=== PATIENT | male | born 1990 | race Caucasian/White ===

== ENCOUNTER 2017-06-23 08:33 | Emergency (ER) | payer OTHER ==
[~2017-06-23] VITALS: Ht 182.9 cm; Wt 98.4 kg
[~2017-06-23 08:33] MED LIST: BACTRIM DS TAB1 EACH PO; CEPHALEXIN500 M1 PO; CEPHALEXIN500 MG PO; CLINDAMYCIN HC300 MG PO; IBUPROFEN600 MG PO; KEFLEX500 MG PO; LIDODERM700 MG TOP; MOBIC7.5 MG PO; NAPROXEN500 MG PO; NORCO 10-325 T1 EACH PO; NORCO 5-325 TA1 EACH PO; VALIUM5 MG PO
== END 2017-06-23 10:07 | disposition home or self-care (01) ==
LOC: ED 08:33
PROC: 0HQ1XZZ Repair Face Skin, External Approach (ICD-10-PCS; principal; 2017-06-23)
DX: S01.412A Laceration without foreign body of left cheek and temporomandibular area, initial encounter (principal); F17.200 Nicotine dependence, unspecified, uncomplicated; W27.8XXA Contact with other nonpowered hand tool, initial encounter; Y99.0 Civilian activity done for income or pay
CPT/HCPCS: 12013; 99282

== ENCOUNTER 2019-10-09 09:05 | Emergency (ER) | payer OTHER, BC ==
[~2019-10-09] VITALS: Ht 182.9 cm; Wt 106.6 kg
[2019-10-09] MEDS ORDERED: IBUPROFEN IB200 MG PO (09:19)
== END 2019-10-09 09:48 | disposition home or self-care (01) ==
LOC: ED 09:05
DX: M70.831 Other soft tissue disorders related to use, overuse and pressure, right forearm (principal); I10 Essential (primary) hypertension; F17.200 Nicotine dependence, unspecified, uncomplicated
CPT/HCPCS: 99283

== ENCOUNTER 2020-06-13 10:26 | Emergency (ER) | payer SELFPAY ==
[~2020-06-13] VITALS: Ht 182.9 cm; Wt 96.6 kg
[~2020-06-13 10:26] MED LIST changes: +IBUPROFEN IB200 MG PO
[2020-06-13] MEDS ORDERED: ONDANSETRON ODT8 MG PO (11:58)
--- NOTE | 2020-06-13 12:00 | NUR ---
Covid swab obtained and sent for rapid testing to clinic
--- NOTE | 2020-06-14 13:44 | NUR ---
[place]LE was asked by House Supervisior to print pt. coronavirus results for pt. requested by pt. so he can show his employer.
== END 2020-06-13 12:09 | disposition home or self-care (01) ==
LOC: ED 10:26
DX: B34.9 Viral infection, unspecified (principal); I10 Essential (primary) hypertension; F17.200 Nicotine dependence, unspecified, uncomplicated; Z20.822 Contact with and (suspected) exposure to COVID-19
CPT/HCPCS: 99283; C9803; U0003

== ENCOUNTER 2020-07-18 16:02 | Emergency (ER) | payer SELFPAY ==
[~2020-07-18] VITALS: Ht 182.9 cm; Wt 93.9 kg
[~2020-07-18 16:02] MED LIST changes: +ONDANSETRON ODT8 MG PO
--- NOTE | 2020-07-18 20:00 | EKG ---
[facility] [address] [place] [address] Signed Normal sinus rhythm Minimal voltage criteria for LVH, may be normal variant Borderline ECG No previous ECGs available Confirmed by BECKIE BARNEY MD ([id number]) on 07/18/2020 8:00:10 PM Electronically Signed By: BECKIE BARNEY MD 07/18/201999 PATIENT NAME: LINNETTE SALAS Electrocardiogram DATE OF : 86 PHYSICIAN: BECKIE BARNEY MD REPORT #: [id number] REPORT IS CONFIDENTIAL AND NOT TO BE RELEASED WITHOUT AUTHORIZATION
== END 2020-07-18 19:20 | disposition home or self-care (01) ==
LOC: ED 16:02
DX: R41.0 Disorientation, unspecified (principal); I10 Essential (primary) hypertension; F17.200 Nicotine dependence, unspecified, uncomplicated
CPT/HCPCS: 70450; 80053; 85025; 93005; 93010; 99285-25

== ENCOUNTER 2020-08-26 12:33 | Emergency (ER) | payer OTHER ==
[~2020-08-26] VITALS: Ht 182.9 cm; Wt 93.9 kg
[2020-08-26] MEDS ORDERED: ONDANSETRON ODT8 MG PO (14:53)
--- NOTE | 2020-08-28 15:17 | EKG ---
[facility] [address] [facility] [address] [place] [address] Signed Normal sinus rhythm Normal ECG When compared with ECG of 18-JUL-2020 18:48, No significant change was found Confirmed by LEIGHA SULLIVAN MD ([id number]) on 08/28/2020 3:17:37 PM Electronically Signed By: LEIGHA SULLIVAN MD 08/28/20 1517 PATIENT NAME: SALASLINNETTE Electrocardiogram DATE OF : 86 PHYSICIAN: LEIGHA SULLIVAN MD REPORT #: [id number] REPORT IS CONFIDENTIAL AND NOT TO BE RELEASED WITHOUT AUTHORIZATION
== END 2020-08-26 15:01 | disposition home or self-care (01) ==
LOC: ED 12:33
DX: K52.9 Noninfective gastroenteritis and colitis, unspecified (principal); Z20.822 Contact with and (suspected) exposure to COVID-19; I10 Essential (primary) hypertension; F17.200 Nicotine dependence, unspecified, uncomplicated
CPT/HCPCS: 80053; 83735; 84484; 85025; 93005; 93010; 96374; 99284-25; C9803; J2405; J7030; U0003

== ENCOUNTER 2020-11-28 20:49 | Emergency (ER) | payer OTHER ==
[~2020-11-28] VITALS: Ht 180.3 cm; Wt 98.0 kg
[2020-11-28] MEDS ORDERED: LEVETIRACETAM500 MG PO (21:20)
== END 2020-11-28 22:30 | disposition home or self-care (01) ==
LOC: ED 20:49
DX: G40.909 Epilepsy, unspecified, not intractable, without status epilepticus (principal); I10 Essential (primary) hypertension; F17.200 Nicotine dependence, unspecified, uncomplicated; Z79.899 Other long term (current) drug therapy
CPT/HCPCS: 99283

== ENCOUNTER 2023-01-11 14:41 | Emergency (ER) | payer OTHER ==
[~2023-01-11] VITALS: Ht 180.3 cm; Wt 91.0 kg
[~2023-01-11 14:41] MED LIST changes: +LEVETIRACETAM500 MG PO
[2023-01-11] MEDS ORDERED: BACTRIM DS TAB1 EACH PO (19:19)
[2023-01-11 19:45] VITALS: BP 118/68
== END 2023-01-11 19:47 | disposition home or self-care (01) ==
LOC: ED 14:41
DX: L03.211 Cellulitis of face (principal); I10 Essential (primary) hypertension; F17.200 Nicotine dependence, unspecified, uncomplicated
CPT/HCPCS: A9270

== ENCOUNTER 2023-01-19 14:52 | Emergency (ER) | payer OTHER ==
[~2023-01-19] VITALS: Ht 180.3 cm; Wt 89.9 kg
--- OUTSIDE RECORDS SUMMARY | ~2023-01-19 | XMS | Continuity of Care Document ---
Demographics + + + | Address | [address] | | | [place] [address] | + + + | Preferred Language | Unknown | + + + | Marital Status | Never | + + + | Confucianist Affiliation | Unknown | + + + | Race | White | + + + | Ethnic Group | Not or | + + + Author + + + | Author | [facility] | + + + | Organization | [facility] | + + + | Address | [address] | | | [place] [address] | + + + | Phone | | + + + Care Team Providers + + + + | Care Abrading Machine Tender Name | Role | Phone | + + + + Unavailable | Unavailable | + + + + Unavailable | Unavailable | + + + + Allergies and Intolerances + + + + + + | date | description | facility | reaction | severity | + + + + + + | (no date) | No Known Drug | [facility] | (no reaction) | (no severity) | | | Allergies | | | | + + + + + + Encounters No information. Functional Status No information. Immunizations No information. Medications + + + + | date | description | facility | + + + + | 2016-03-18 00:00 | LIDOCAINE | [facility] | + + + + | 2016-03-18 00:00 | DIAZEPAM | [facility] | + + + + | 2015-08-18 00:00 | MELOXICAM | [facility] | + + + + | 2014-06-03 00:00 | CEPHALEXIN | [facility] | + + + + | 2016-03-18 00:00 | IBUPROFEN | [facility] | + + + + | 2015-04-19 00:00 | CEPHALEXIN | [facility] | + + + + | 2013-04-14 00:00 | CEPHALEXIN | [facility] | + + + + | 2023-01-11 00:00 | IBUPROFEN | [facility] | + + + + | 2023-01-11 00:00 | LEVETIRACETAM | [facility] | + + + + | 2020-06-13 00:00 | ONDANSETRON | [facility] | + + + + | 2020-08-26 00:00 | ONDANSETRON | [facility] | + + + + | 2014-06-03 00:00 | | [facility] | | | SULFAMETHOXAZOLE/TRIMETHOPR | | | | IM DS | | + + + + | 2015-04-19 00:00 | | [facility] | | | SULFAMETHOXAZOLE/TRIMETHOPR | | | | IM DS | | + + + + | 2023-01-11 00:00 | | [facility] | | | SULFAMETHOXAZOLE/TRIMETHOPR | | | | IM DS | | + + + + | 2023-01-11 00:00 | HYDROCODONE/APAP | [facility] | | | (10-325MG) | | + + + + | 2013-04-14 00:00 | HYDROCODONE | [facility] | | | BIT/ACETAMINOPHEN | | + + + + | 2015-04-19 00:00 | HYDROCODONE | [facility] | | | BIT/ACETAMINOPHEN | | + + + + Problems + + + + | date | description | facility | + + + + | 2014-06-03 00:00 | Cellulitis and abscess | [facility] | + + + + | 2014-07-16 00:00 | Dental abscess | [facility] | + + + + | 2015-08-18 00:00 | Direct inguinal hernia | [facility] | + + + + | 2015-08-18 00:00 | Recurrent left inguinal | [facility] | | | hernia | | + + + + | 2016-03-18 00:00 | Spasm of back muscles | [facility] | + + + + | 2016-03-18 00:00 | Strain of lumbar region | [facility] | + + + + | 2020-06-13 00:00 | Viral infection | [facility] | + + + + | 2020-07-18 00:00 | Intermittent confusion | [facility] | + + + + | 2020-08-26 00:00 | Acute gastroenteritis | [facility] | + + + + | 2020-08-27 00:00 | Loss of consciousness | [facility] | + + + + | 2020-11-28 00:00 | Recurrent seizures | [facility] | + + + + | 2021-03-09 00:00 | Patient left after triage | [facility] | + + + + | 2023-01-11 00:00 | Cellulitis | [facility] | + + + + | 2023-01-11 14:42 | NICOTINE DEPENDENCE, | [facility] | | | UNSPECIFIED, UNCOMPLICATED | | + + + + | 2023-01-11 14:42 | Essential (primary) | [facility] | | | hypertension | | + + + + | 2023-01-11 14:42 | CELLULITIS OF FACE | [facility] | + + + + Procedures No information. Results/Labs No information. Social History No information. Vital Signs + + + +---------+ | date | measurement | value | units | + + + +---------+ | 2023-01-11 00:00 | BMI | 28.0 | kg/m2 | + + + +---------+ | 2023-01-11 00:00 | BP_diastolic | 68 | mmHg | + + + +---------+ | 2023-01-11 00:00 | BP_systolic | 118 | mmHg | + + + +---------+ | 2023-01-11 00:00 | heart_rate | 83 | /min | + + + +---------+ | 2023-01-11 00:00 | height_metric | 180.34 | cm | + + + +---------+ | 2023-01-11 00:00 | height_standard | 71 | in | + + + +---------+ | 2023-01-11 00:00 | o2_saturation | 100 | % | + + + +---------+ | 2023-01-11 00:00 | respiration_rate | 16 | /min | + + + +---------+ | 2023-01-11 00:00 | temperature_metric | 36.67 | C | | | | | | + + + +---------+ | 2023-01-11 00:00 | | 98 | F | | | temperature_standar | | | | | d | | | + + + +---------+ | 2023-01-11 00:00 | weight_metric | 90.97 | kg | + + + +---------+ | 2023-01-11 00:00 | weight_standard | 200.55 | lb | + + + +---------+ | 2023-01-11 00:00 | weight_standard | 200.56 | lb | + + + +---------+"
--- OUTSIDE RECORDS SUMMARY | ~2023-01-19 | XMS | Continuity of Care Document ---
Demographics + + + | Address | [address] | | | [place] [address] | + + + | Preferred Language | Unknown | + + + | Marital Status | Never | + + + | Oriental Orthodox Affiliation | Unknown | + + + | Race | White | + + + | Ethnic Group | Not or | + + + Author + + + | Author | [facility] | + + + | Organization | [facility] | + + + | Address | [address] | | | [place] [address] | + + + | Phone | | + + + Care Team Providers + + + + | Care Tractor Engine Assembler Name | Role | Phone | + [...] | 2016-03-18 00:00 | LIDOCAINE | [facility] | + + + + | 2016-03-18 00:00 | DIAZEPAM | [facility] | + + + + | 2015-08-18 00:00 | MELOXICAM | [facility] | + + + + | 2014-06-03 00:00 | CEPHALEXIN | [facility] | + + + + | 2016-03-18 00:00 | IBUPROFEN | [facility] | + + + + | 2015-04-19 00:00 | CEPHALEXIN | [facility] | + + + + | 2013-04-14 00:00 | CEPHALEXIN | [facility] | + + + + | 2023-01-11 00:00 | IBUPROFEN | [facility] | + + + + | 2023-01-11 00:00 | LEVETIRACETAM | [facility] | + + + + | 2020-06-13 00:00 | ONDANSETRON | [facility] | + + + + | 2020-08-26 00:00 | ONDANSETRON | [facility] | + + + + | 2014-06-03 00:00 | | [facility] | | | SULFAMETHOXAZOLE/TRIMETHOPR | | | | IM DS | | + + + + | 2015-04-19 00:00 | | [facility] | | | SULFAMETHOXAZOLE/TRIMETHOPR | | | | IM DS | | + + + + | 2023-01-11 00:00 | | [facility] | | | SULFAMETHOXAZOLE/TRIMETHOPR | | | | IM DS | | + + + + | 2023-01-11 00:00 | HYDROCODONE/APAP | [facility] | | | (10-325MG) | | + + + + | 2013-04-14 00:00 | HYDROCODONE | [facility] | | | BIT/ACETAMINOPHEN | | + + + + | 2015-04-19 00:00 | HYDROCODONE | [facility] | | | BIT/ACETAMINOPHEN | | + + + + Problems + + + + | date | description | facility | + + + + | 2014-06-03 00:00 | Cellulitis and abscess | [facility] | + + + + | 2014-07-16 00:00 | Dental abscess | [facility] | + + + + | 2015-08-18 00:00 | Direct inguinal hernia | [facility] | + + + + | 2015-08-18 00:00 | Recurrent left inguinal | [facility] | | | hernia | | + + + + | 2016-03-18 00:00 | Spasm of back muscles | [facility] | + + + + | 2016-03-18 00:00 | Strain of lumbar region | [facility] | + + + + | 2020-06-13 00:00 | Viral infection | [facility] | + + + + | 2020-07-18 00:00 | Intermittent confusion | [facility] | + + + + | 2020-08-26 00:00 | Acute gastroenteritis | [facility] | + + + + | 2020-08-27 00:00 | Loss of consciousness | [facility] | + + + + | 2020-11-28 00:00 | Recurrent seizures | [facility] | + + + + | 2021-03-09 00:00 | Patient left after triage | [facility] | + + + + | 2023-01-11 00:00 | Cellulitis | [facility] | + + + + | 2023-01-11 [...]
--- OUTSIDE RECORDS SUMMARY | 2023-01-19 15:01 | XMS ---
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 Events No recent Security Events currently on file CRITERIA MET - [facility] - 2 Visits in 30 Days CARE PROVIDERS TERRY ORTIZ Physician Clinical Interviewer 08/27/2020-Current PHONE: [phone] -, [place]- Dentist: Facility Practice Specialist [facility] PHONE: [phone] Guidelines Source: [facility] Guidelines Date: 12/04/2020 Care Recommendation: PATIENT NO LONGER HAS PCP.\T\nbsp; PLEASE ASK HIM TO CALL CASE MANAGEMENT FOR HELP TO OBTAIN NEW PCP.\T\nbsp; [phone].\T\nbsp; HE DOES NOT HAVE A NEUROLOGIST.\T\nbsp; WILL NEED PCP BEFORE HE CAN GET ONE IF NEEDED. Care History Medical/Surgical 08/28/2020 [facility] - PATIENT WAS SEEN BY HIS PCP TERRY ORTIZ AFTER ED VISIT 08/27/20. - REFERRAL FOR NEUROLOGY SENT TO [facility] OF 08/28/20 AM. E.D. VISIT COUNT (12 MO.) 2 [facility] TOTAL 2 NOTE: Visits indicate total known visits. ED/UCC VISIT TRACKING (12 MO.) 01/19/2023 14:52 [facility] [place] TYPE: Emergency COMPLAINT: - SKIN PROBLEM 01/11/2023 14:42 [facility] [place] TYPE: Emergency COMPLAINT: - SKIN PROBLEM DIAGNOSES: - Cellulitis of face - Essential (primary) hypertension - Headache, unspecified - Nicotine dependence, unspecified, uncomplicated INPATIENT VISIT TRACKING (12 MO.) No inpatient visits to display in this time frame [email or web address]
[2023-01-19 16:59] VITALS: BP 118/83
== END 2023-01-19 16:59 | disposition home or self-care (01) ==
LOC: ED 14:52
DX: N47.2 Paraphimosis (principal); F17.200 Nicotine dependence, unspecified, uncomplicated
CPT/HCPCS: 99283; A9270

== ENCOUNTER 2024-01-28 01:27 | Emergency (ER) | payer OTHER ==
[~2024-01-28] VITALS: Ht 180.3 cm; Wt 75.0 kg
[2024-01-28 02:21] LABS: AMPHETAMINES, URINE POSITIVE (NEGATIVE); BARBITURATES, URINE NEGATIVE (NEGATIVE); BENZODIAZEPINE, URINE NEGATIVE (NEGATIVE); BUPRENORPHINE, URINE NEGATIVE (NEGATIVE); CANNABINOID, URINE NEGATIVE (NEGATIVE); COCAINE, URINE NEGATIVE (NEGATIVE); ECSTASY, URINE POSITIVE (NEGATIVE); FENTANYL, URINE POSITIVE (NEGATIVE); METHADONE, URINE NEGATIVE (NEGATIVE); OPIATES, URINE NEGATIVE (NEGATIVE); OXYCODONE, URINE NEGATIVE (NEGATIVE); PHENCYCLIDINE, URINE NEGATIVE (NEGATIVE)
[2024-01-28 05:20] VITALS: BP 114/65
== END 2024-01-28 05:20 | disposition home or self-care (01) ==
LOC: ED 01:27
PROVIDERS: Emergency Medicine
DX: F19.10 Other psychoactive substance abuse, uncomplicated (principal); I10 Essential (primary) hypertension; F17.200 Nicotine dependence, unspecified, uncomplicated
CPT/HCPCS: 80307; 99284

== ENCOUNTER 2024-03-16 17:12 | Emergency (ER) | payer OTHER ==
[~2024-03-16] VITALS: Ht 180.3 cm; Wt 79.5 kg
[2024-03-16] MEDS ORDERED: KETOROLAC TROMETHAMINE 30 MG/ML VIAL IV ONE (17:30)
[2024-03-16] MEDS ORDERED: SODIUM CHLORIDE 0.9% 1,000 ML IV ONE (17:30)
[2024-03-16] MEDS ORDERED: PANTOPRAZOLE SODIUM 40 MG/10 ML VIAL IV ONE (17:30)
[2024-03-16] MEDS ORDERED: ondansetron HCL 4 MG/2 ML VIAL IV ONE (17:30)
[2024-03-16 17:49] LABS: BASOPHILS 0.9 % (0-2); EOSINOPHILS 2.3 % (0-6); HEMATOCRIT 38.7 % (35.0-50.0); HEMOGLOBIN 13.2 g/dL (12.0-18.0); LYMPHOCYTES 33.8 % (24-44); MCH 30.1 (27-36); MCHC 34.1 g/dl (30-36); PLATELET COUNT 286 K/uL (140-440); RDW 13.2 (10.5-15.0)
[2024-03-16 18:03] LABS: ALBUMIN 3.3 g/dL (3.4-5.0); ALBUMIN/GLOBULIN RATIO 0.85 (1.1-2.4); ALCOHOL, MEDICAL <3 ng/dL (<3); ALKALINE PHOSPHATASE 76 U/L (46-116); ALT (SGPT) 19 U/L (14-59); ANION GAP 9.5 (7-21); AST (SGOT) 16 U/L (15-37); BILIRUBIN, TOTAL 0.6 ng/dL (0.2-1.0); BUN/CREATININE RATIO 14.28 (6.0-28.6); CALCIUM 8.8 mg/dL (8.5-10.1); CARBON DIOXIDE 31 mmol/L (21-32); CHLORIDE 107 mmol/L (98-107); CREATININE, SERUM 0.98 mg/dL (0.70-1.30); GLOMERULAR FILTRATION RATE,EST 103 mL/min (>60); POTASSIUM 4.5 mmol/L (3.5-5.1); PROTEIN, TOTAL 7.2 g/dL (6.4-8.2); UREA NITROGEN 14 mg/dL (7-18)
[2024-03-16 18:23] LABS: INFLUENZA B NAA NEGATIVE (NEGATIVE); RESPIRATORY SYNCYTIAL VIR NAA NEGATIVE (NEGATIVE)
[2024-03-16] MEDS ORDERED: CEFDINIR 300 MG CAP PO ONE (18:45)
[2024-03-16] MEDS ORDERED: AZITHROMYCIN 250 MG TAB PO ONE (18:45)
[2024-03-16] MEDS ORDERED: ZITHROMAX250 MG PO (19:02)
[2024-03-16] MEDS ORDERED: CEFDINIR300 MG PO (19:02)
[2024-03-16 19:36] VITALS: BP 105/66
== END 2024-03-16 19:36 | disposition home or self-care (01) ==
LOC: ED 17:12
PROVIDERS: Emergency Medicine
DX: K59.00 Constipation, unspecified (principal); J18.9 Pneumonia, unspecified organism; I10 Essential (primary) hypertension; F17.200 Nicotine dependence, unspecified, uncomplicated
CPT/HCPCS: 36415; 74177; 80053; 80307; 83690; 85025; 87502; 96375; 99284-25; G0480; J1885; J2405; J2470; J7030; Q9967; U0002

== ENCOUNTER 2024-04-21 00:23 | Emergency (ER) | payer OTHER ==
[~2024-04-21] VITALS: Ht 180.3 cm; Wt 80.0 kg
[~2024-04-21 00:23] MED LIST changes: +CEFDINIR300 MG PO; +ZITHROMAX250 MG PO
[2024-04-21] MEDS ORDERED: ondansetron HCL 4 MG/2 ML VIAL IV ONE (00:45)
[2024-04-21] MEDS ORDERED: buprenorphine HCL 8 MG TAB.SUBL SL ONE (00:45)
[2024-04-21] MEDS ORDERED: LACTATED RINGER'S 1,000 ML IV ONE (00:45)
[2024-04-21] MEDS ORDERED: KETOROLAC TROMETHAMINE 30 MG/ML VIAL IV ONE (00:45)
[2024-04-21 01:04] LABS: BASOPHILS 0.7 % (0-2); EOSINOPHILS 2.7 % (0-6); HEMATOCRIT 36.7 % (35.0-50.0); HEMOGLOBIN 12.6 g/dL (12.0-18.0); MCH 30.1 (27-36); MCHC 34.3 g/dl (30-36); MCV 87.6 fl (81-99); MONOCYTES 7.4 % (0-12); NEUTROPHILS 57.2 % (39-80); PLATELET COUNT 205 K/uL (140-440); RBC 4.19 M/ul (4.3-5.7); RDW 13.3 (10.5-15.0)
[2024-04-21 01:22] LABS: ALBUMIN 3.4 g/dL (3.4-5.0); ANION GAP 10.1 (7-21); BILIRUBIN, TOTAL 0.8 ng/dL (0.2-1.0); BUN/CREATININE RATIO 13.86 (6.0-28.6); CALCIUM 8.6 mg/dL (8.5-10.1); CREATININE, SERUM 1.01 mg/dL (0.70-1.30); POTASSIUM 4.1 mmol/L (3.5-5.1); PROTEIN, TOTAL 6.8 g/dL (6.4-8.2)
[2024-04-21] MEDS ORDERED: NALOXONE 4 MG NASAL SPRAY #2 HOME.PACK NAS ONE (01:45)
[2024-04-21] MEDS ORDERED: Buprenorphine/Naloxone 8/2mg 1 EACH HOME.PACK SL ONE (01:45)
[2024-04-21 02:23] VITALS: BP 109/60
== END 2024-04-21 02:30 | disposition home or self-care (01) ==
LOC: ED 00:23
PROVIDERS: Internal Medicine
DX: F11.23 Opioid dependence with withdrawal (principal); I10 Essential (primary) hypertension; F17.200 Nicotine dependence, unspecified, uncomplicated
CPT/HCPCS: 36415; 80053; 80307; 83690; 83735; 85025; 96361; 96374; 96375; 99284-25; A9270; J1885; J2405; J3490; J7121